=== PATIENT | female | born 1985 | race Caucasian/White ===

== ENCOUNTER 2016-12-10 09:08 | Day surgery (SDC) | payer OTHER ==
[2016-12-07 12:59] VITALS: BMI 24.7
[2016-12-10] MEDS ORDERED: PROPOFOL 20 ML ONE (09:54)
[2016-12-10] MEDS ORDERED: ROCURONIUM BROMIDE 50 MG/5 ML VIAL ONE ×2 (09:55→13:23)
[2016-12-10] MEDS ORDERED: LIDOCAINE HCL 2% JELLY (5 ML/TUBE) ONE (09:57)
[2016-12-10] MEDS ORDERED: LIDOCAINE HCL/PF 2% SDV 5ML VIAL ONE (09:58)
[2016-12-10] MEDS ORDERED: HEPARIN NA (PORCINE) 5,000 UNITS/ML 1ML VIAL ONE (10:09)
[2016-12-10] MEDS ORDERED: MIDAZOLAM HCL 2 MG/2 ML SINGLE DOSE VIAL ONE (11:35)
[2016-12-10] MEDS ORDERED: ONDANSETRON 4 MG/2 ML VIAL IVPUSH PRN (12:54)
[2016-12-10] MEDS ORDERED: HYDROmorphone HCL/PF 1 MG/ML VIAL (FOR PYXIS CHARGING ONLY) ONE (13:27)
[2016-12-10] MEDS ORDERED: DEXAMETHASONE SOD PHOSPHATE 4 MG/1 ML VIAL ONE ×2 (14:16→16:08)
[2016-12-10] MEDS ORDERED: ONDANSETRON 4 MG/2 ML VIAL ONE ×3 (14:16→17:02)
[2016-12-10] MEDS ORDERED: NEOSTIGMINE METHYLSULFATE 0.5 MG/ML - 10 ML MDV ONE (15:51)
[2016-12-10] MEDS ORDERED: SUCCINYLCHOLINE CHLORIDE 200 MG/10 ML VIAL ONE (15:57)
[2016-12-10] MEDS ORDERED: GLYCOPYRROLATE 0.2 MG/1 ML VIAL ONE (16:08)
[2016-12-10] MEDS ORDERED: morphine CARPU-JECT 10 MG/1 ML DISP.SYRIN IVPUSH PRN (16:29)
[2016-12-10] MEDS ORDERED: oxyCODONE HCL 5 MG TABLET PO PRN (16:29)
[2016-12-10] MEDS ORDERED: ONDANSETRON 4 MG/2 ML VIAL IVPB PRN (16:29)
[2016-12-10] MEDS ORDERED: LACTATED RINGERS SOLUTION 1,000 ML IV SCH (16:30)
[2016-12-10] MEDS ORDERED: morphine CARPU-JECT 4 MG/1 ML DISP.SYRIN ONE (20:06)
[2016-12-10] MEDS ORDERED: HYDROmorphone HCL CARPU-JECT 1 MG/1 ML DISP.SYRIN ONE (21:07)
[2016-12-10] MEDS ORDERED: HYDROmorphone HCL CARPU-JECT 1 MG/1 ML DISP.SYRIN IVPB ONE (21:10)
[2016-12-10] MEDS ORDERED: diphenhydrAMINE HCL 25 MG CAPSULE (FP) PO PRN (22:50)
[2016-12-10] MEDS ORDERED: diphenhydrAMINE HCL 25 MG CAPSULE (FP) PO ONE (22:53)
[2016-12-10] MEDS ORDERED: HYDROmorphone HCL CARPU-JECT 1 MG/1 ML DISP.SYRIN IVPB PRN (23:13)
--- NOTE | 2016-12-11 01:01 | OP ---
DATE OF OPERATION: 12/10/2016 TITLE OF PROCEDURE: Extended panniculectomy. PREOPERATIVE DIAGNOSIS: Skin excess status post massive weight loss. POSTOPERATIVE DIAGNOSIS: Skin excess status post massive weight loss. SURGEON: Zachariah Martinez M.D. ASSISTANTS: There were no assistants. PROCEDURE: Patient is marked in the holding area preoperatively awake, aware of all incisions developing scars, the risks of surgery are discussed, she understands and agrees to proceed. She is brought to the operating room, placed in supine position. A Spencer catheter is placed. A 2-g of Ancef are given preoperatively. The patient had received 5000 units of subcutaneous heparin preoperatively. She is positioned carefully by surgical and anesthesia teams. Sequential compression stockings were applied, DEBI hose are applied. The patient is then prepped and draped in standard surgical fashion, timeout is called, patient, procedure, incision sites are verified. The procedure is as follows. Incision is made along the inferior border of the pannus fold at which point the dissection is carried down to the level of the abdominal wall fascia. The superficial epigastric artery and vein are identified as well as the lateral circumflex iliac artery and vein superficial are suture ligated between clamps. The abdominoplasty clamp was then elevated to the level of the umbilicus. The umbilicus is circumcised. At this point, the flap is divided in the midline to the level of the umbilicus. The umbilicus is then developed on a fibrofatty stalk and dissection is then continued more superiorly to the level of the xiphoid process in the midline costal margins bilaterally. Hemostasis was meticulously achieved, several larger vessels are suture ligated. The remainder are ligated with clamps and Bovie cautery. The wound is copiously irrigated. A midline plication is performed in 2 rows, first with a series of interrupted buried [id number] 1 Prolene suture followed by a running locking 1 Prolene suture both below and above the umbilicus. The patient is found to have even tension across the abdominal fascia. The patient was brought to 30 degrees of flexed position where the abdominoplasty flap is then brought down to the level of the pubic incision, and its excess is marked and is resected. Hemostasis once again achieved. The skin is tailor tacked in place with alyssa. The position for umbilical translocation has been marked on the abdominoplasty flap. A Star Trek pattern incision is made at this point on the abdominoplasty flap and a core of fat is removed including the skin within Star Trek pattern. The umbilicus is first tacked to the fascia with a series of interrupted buried sutures with 3-0 Monocryl suture from the umbilical stalk to the fascia. The umbilicus is then translocated and through the position a 6 o'clock notch is resected from the 6 o'clock position of the umbilicus. The inferior 6 o'clock flap from the Star Trek pattern is infiltrated into the notch and the umbilicus is then inset with a series of interrupted buried deep dermal 3-0 Monocryl suture followed by a running 5-0 nylon suture. The closure of the abdominoplasty flap is then performed first over two size 10 flat JESSICA drains. The left side is along the lower portion of the wound, the right side is on the upper portion of the wound . The drains are secured with 2-0 silk drain sutures. The drain is placed to bulb suction after which the closure is finalized with a series of interrupted buried superficial fascial symptoms Jason layer 2-0 Vicryl suture followed by a series of interrupted buried deep dermal 3-0 Monocryl suture followed by a running subcuticular 3-0 Monocryl suture . The patient is dressed with Steri-Strips, Xeroform and bacitracin of the umbilicus, abdominal binder, is woken from anesthesia, remains in a flexed 30-degree position, transferred to her bed without complication. Please note the Spencer catheter was removed at the end of the case. Arielle [id number]
[2016-12-11 06:17] VITALS: BP 106/55; PULSE 71; TEMP 98.2
[2016-12-11] MEDS ORDERED: HEPARIN NA (PORCINE) 5,000 UNITS/ML 1ML VIAL SQ ONE (07:10)
--- NOTE | 2016-12-11 07:10 | PN ---
Progress Note (short form) - Note Progress Note: Healing well VSS AF Ambulating Xavier PO OK for discharge this morning.
--- NOTE | 2016-12-12 09:00 | PATH ---
Surgical Pathology Report Patient Name: AMARI CEDENO [facility]. Rec. #: [id number] /Age/Gender: 1985 (Age: 31) / F Account: [id number] Location: [facility] Taken: 12/10/2016 Received: 12/10/2016 Reported: 12/12/2016 Physicians: Zachariah Martinez Specimen(s) Received PANNICULECTOMY Clinical History Abdominal skin pannus Final Diagnosis SKIN AND SOFT TISSUE, ABDOMEN, PANNICULECTOMY: UNREMARKABLE SKIN AND SUBCUTANEOUS ADIPOSE TISSUE (GROSS ONLY). Electronically Signed Yunior Trejo M.D. Gross Description Received in formalin, labeled "abdominal pannus," is a 1497 g, 34.5 x 23.0 x 3.0 cm aggregate of 2 carbone, triangular, unremarkable portions of skin with underlying soft tissue. Sectioning reveals unremarkable yellow, lobulated adipose tissue. No lesions are identified. No sections are submitted, gross only. 12/11/2016 saudi12/11/2016
== END 2016-12-11 09:40 | disposition home or self-care (01) ==
LOC: FASU 09:08 → FM/S 19:16 → FASU 12-11 09:40
PROVIDERS: ATTEND Plastic Surgery
PROC: 0J080ZZ Alteration of Abdomen Subcutaneous Tissue and Fascia, Open Approach (ICD-10-PCS; principal; 2016-12-10 11:51)
DX: L98.7 Excessive and redundant skin and subcutaneous tissue (principal)
CPT/HCPCS: 84703; 88300-TC; 94760; J1644